=== PATIENT | female | born 1960 | race Caucasian/White ===

== ENCOUNTER 2020-05-23 08:44 | Day surgery (SDC) | payer BC ==
[2020-05-21 13:25] VITALS: BMI 24.3
[~2020-05-23 08:44] MED LIST: LACTATED RINGERS 1,000 ML IV SCH; LIDOCAINE 1% (10MG/ML) FOR IV START INTRADERMA PRN
[2020-05-23 09:17] VITALS: TEMP 98.4
[2020-05-23] MEDS ORDERED: PROPOFOL 10 MG/ML 20 ML VIAL IV ONE (09:54)
--- NOTE | 2020-05-23 10:11 | P.PCN ---
Date of Procedure: 05/23/20 Procedure(s) Performed: BRIEF HISTORY: Patient is a 59-year-old pleasant white female scheduled for an elective colonoscopy as a part of screening for colorectal neoplasia. PROCEDURE PERFORMED: Colonoscopy. PREOPERATIVE DIAGNOSIS: Screening for colon cancer. IV sedation per Anesthesia. PROCEDURE: After informed consent was obtained, the patient, was brought into the endoscopy unit. IV sedation was administered by Anesthesia under continuous monitoring. Digital rectal examination was normal. Initially the Olympus CF-160 flexible video colonoscope was then inserted in the rectum, gradually advanced into the cecum without any difficulty. Careful examination was performed as the scope was gradually being withdrawn. Ileocecal valve and the appendiceal orifice were visualized and appeared normal. Prep was excellent. Mucosa of the cecum, ascending colon, transverse colon, descending colon, sigmoid colon, and rectum appeared normal. Retroflexion was performed in the rectum and no lesions were seen. The patient tolerated the procedure well. IMPRESSION: Normal-appearing colon from rectum to cecum with no evidence of colitis or colorectal neoplasia.. RECOMMENDATIONS: Findings of this examination were discussed with the patient as well as a family. She was advised to have a repeat scanning colonoscopy in 10 years..
[2020-05-23 11:02] VITALS: BP 110/74; PULSE 88; RESP 16
== END 2020-05-23 11:15 | disposition home or self-care (01) ==
LOC: ORWHC2ENDO 08:44
PROVIDERS: ATTEND Internal Medicine Gastroenterology
DX: Z12.11 Encounter for screening for malignant neoplasm of colon (principal); E89.0 Postprocedural hypothyroidism; Z88.0 Allergy status to penicillin; Z79.890 Hormone replacement therapy; Z98.890 Other specified postprocedural states
CPT/HCPCS: J2704; G0121